=== PATIENT | male | born 1975 | race Caucasian/White ===

== ENCOUNTER 2017-09-07 08:00 | Outpatient (CLI) | payer BC ==
[2017-09-07 09:29] LABS: #Eosinphils 0.4 thou/uL (0.0-0.7); #Lymphocytes 1.3 thou/uL (1.20-3.40); #Monocytes 0.8 thou/uL (0.11-0.59); #Neutrophils 4.4 thou/uL (1.40-6.50); %Basophils 0.3 % (0.0-1.0); %Eosinophils 6.1 % (0.0-10.0); %Lymphocytes 18.9 % (21.0-51.0); Hematocrit 50.9 % (42.0-52.0); Mean Platelet Volume 8.1 fL (7.4-10.4); Red Blood Cell (RBC) Count 5.55 mill/uL (4.70-6.10); White Blood Cell (WBC) Count 6.9 thou/uL (4.8-10.8)
[2017-09-07 09:40] LABS: Anion Gap 13 mmol/L (10-20); BUN (Urea Nitrogen) 19 mg/dL (8.9-20.6); Calc. Creatinine Clearance 0 mL/min (70-130); Calcium 9.8 mg/dL (7.8-10.44); Carbon Dioxide 27 mmol/L (22-29); Chloride 105 mmol/L (98-107); Estimated GFR-MDRD 74
== END 2017-09-07 08:01 | disposition home or self-care (01) ==
LOC: LABBT 08:00
PROVIDERS: ATTEND Surgery
DX: Z01.812 Encounter for preprocedural laboratory examination (principal); D37.3 Neoplasm of uncertain behavior of appendix
CPT/HCPCS: 80048; 85025

== ENCOUNTER 2017-09-14 11:48 | Day surgery (SDC) | payer BC ==
[2017-09-14] MEDS ORDERED: Fentanyl 100 MCG/2 ML VIAL ONE ×3 (12:25→15:33)
[2017-09-14] MEDS ORDERED: Midazolam HCl 2 mg/2 ml Vial ONE (12:25)
[2017-09-14] MEDS ORDERED: Dexamethasone 4 mg/ml Vial ONE (12:25)
[2017-09-14] MEDS ORDERED: Bupivacaine/Epinephrine 0.25% 30 ML VIAL ONE (12:40)
[2017-09-14] MEDS ORDERED: cefOXitin 2 GM, Syringe 1 ML in Sterile Water 10 ML SLOW IVP SCH (12:45)
[2017-09-14] MEDS ORDERED: Ketorolac Tromethamine 30 MG/ML VIAL ONE (16:46)
[2017-09-14] MEDS ORDERED: Lidocaine 1% PF 5 ML VIAL ONE (16:46)
[2017-09-14] MEDS ORDERED: Ondansetron HCl/PF 4 MG/2 ML Vial ONE ×2 (16:46→16:49)
[2017-09-14] MEDS ORDERED: Propofol 200 MG/20 ML VIAL ONE (16:46)
[2017-09-14] MEDS ORDERED: Dexamethasone 20 MG/5 ML VIAL ONE (16:46)
[2017-09-14] MEDS ORDERED: Glycopyrrolate 0.2 MG/ML 5 ML SYRINGE ONE (16:46)
[2017-09-14] MEDS ORDERED: Bupivacaine HCl 0.5%/Epinephrine 1:200,000/PF 30 ml Vial ONE (16:48)
--- NOTE | 2017-09-14 21:23 | OP ---
DATE: 09/14/2017 PREOPERATIVE DIAGNOSES: Appendiceal mass. POSTOPERATIVE DIAGNOSIS: Appendiceal mass. PROCEDURE: Laparoscopic appendectomy. SURGEON: Cody Lr M.D. ANESTHESIA: General. ESTIMATED BLOOD LOSS: Minimal. COMPLICATIONS: None. SPECIMEN: Appendix. TECHNIQUE: The patient is taken to the operating room and laid supine on the operating room table. After general anesthetic was obtained, a Fulton catheter was placed. The abdomen was shaved, prepped and draped in a sterile fashion. Left subcostal 5-mm Optiview trocar was placed in the usual fashion and high-flow pneumoperitoneum was obtained. A suprapubic 5 mm port and to the left of the umbilicu s 12-mm port were all placed under direct visualization. The patient was placed in Trendelenburg pos ition. The cecum was rolled over to reveal an appendix with what looks like a mid appendix mass. Th e cecum was mobilized along the white line of Toldt using cautery. A window was made posterior to th e cecum. A laparoscopic stapler was fired twice across the posterior cecum removing the appendix and a small amount of the cecum. The staple line appears intact, the appendiceal mesentery was taken us ing a vascular reload of the stapler. The appendix was placed in an Endo catch bag and brought out t hrough one of the 12 mm trocar sites. It was opened on the back table to reveal the mid to distal ap pendiceal nodular structure. No obvious mass at the base of the appendix. There was no bleeding on the staple lines. There was no bleeding in the abdomen, no injury to any intraabdominal structures. All port sites are infiltrated using local anesthetic. All ports were removed under camera visualiz ation. Vicryl tie and GraNee needle had been used to close the two 12-mm trocar sites. All the brice sfascial sutures were tied down. The wounds were irrigated and closed using 4-0 Monocryl and Dermabo nd. The patient was en route to recovery in stable condition. All instrument counts, needle counts, and lap counts are correct.
== END 2017-09-14 18:30 | disposition home or self-care (01) ==
LOC: SDC 11:48
PROVIDERS: ATTEND Surgery
PROC: 0DTJ4ZZ Resection of Appendix, Percutaneous Endoscopic Approach (ICD-10-PCS; principal; 2017-09-14)
DX: K38.8 Other specified diseases of appendix (principal); K21.9 Gastro-esophageal reflux disease without esophagitis; Z98.1 Arthrodesis status; Z98.890 Other specified postprocedural states; Z82.49 Family history of ischemic heart disease and other diseases of the circulatory system
CPT/HCPCS: 88304; 88341; 88342; 96374; A4216; J0670; J0694; J1100; J1885; J2001; J2250; J2405; J2704; J3010